=== PATIENT | male | born 1960 | race Caucasian/White ===

== ENCOUNTER 2017-10-28 11:54 | Emergency (ER) | payer MEDICARE, MEDICAID ==
[2017-10-28 12:56] LABS: APPEARANCE,URINE CLOUDY; BILIRUBIN,URINE NEGATIVE (NEGATIVE); GLUCOSE, URINE NEGATIVE (NEGATIVE); KETONES,URINE NEGATIVE (NEGATIVE); LEUKOCYTE ESTERASE,URINE NEGATIVE (NEGATIVE); NITRITE,URINE NEGATIVE (NEGATIVE); PROTEIN,URINE 100 mg/dL (NEGATIVE); URINE SPECIFIC GRAVITY 1.017; UROBILINOGEN,URINE NEGATIVE mg/dL (<2.0)
[2017-10-28 12:57] LABS: COLOR,URINE BROWN
[2017-10-28] MEDS ORDERED: ONDANSETRON HCL INJ/PF 4 MG/2 ML SDV IV ONE (14:33)
[2017-10-28] MEDS ORDERED: NORMAL SALINE 1000 ML 1,000 ML IV ONE (14:33)
--- NOTE | 2017-10-28 14:35 | ER Document Report ---
ED Medical Screen (RME) - General Chief Complaint: Urinary Problem Stated Complaint: BLOOD IN URINE/HEADACHE Time Seen by Provider: 10/28/17 14:29 Mode of Arrival: Ambulatory Information source: Patient Notes: Patient is a 49-year-old male who presents with multiple complaints today. Patient reports he has blood in his urine, fever, headache, nausea, diarrhea, productive cough and left-sided low back/flank pain. Patient reports history of kidney stones and states this does not feel like that. Exam: Mild wheezing noted to the right lower lobe. No CVA tenderness noted bilaterally. Tenderness to palpation to the paraspinous muscles on the left side. No acute distress noted. I have greeted and performed a rapid initial assessment of this patient. A comprehensive ED assessment and evaluation of the patient, analysis of test results and completion of the medical decision making process will be conducted by additional ED providers. Dictation of this chart was performed using voice recognition software; therefore, there may be some unintended grammatical errors. TRAVEL OUTSIDE OF THE [place] IN LAST 30 DAYS: No - Related Data Allergies/Adverse Reactions: amoxicillin Allergy (Verified 10/28/17 11:56) Past Medical History - Social History Chew tobacco use (# tins/day): No Frequency of alcohol use: Occasional Drug Abuse: None Neurological Medical History: Reports: Hx Seizures - as a child Renal/ Medical History: Denies: Hx Peritoneal Dialysis Past Surgical History: Reports: Hx Appendectomy, Hx Cholecystectomy, Hx Orthopedic Surgery - R hip replaced, L knee, L rotator cuff repait Physical Exam - Vital signs Vitals: Temp Pulse Resp BP Pulse Ox 98.6 F 96 18 121/67 96 10/28/17 12:16 10/28/17 12:16 10/28/17 12:16 10/28/17 12:16 10/28/17 12:16 Course - Vital Signs Vital signs: Temp Pulse Resp BP Pulse Ox 98.6 F 96 18 121/67 96 10/28/17 12:16 10/28/17 12:16 10/28/17 12:16 10/28/17 12:16 10/28/17 12:16 - Laboratory Laboratory results interpreted by me: 10/28/17 12:00 Urine Protein 100 H Urine Blood LARGE H Doctor's Discharge - Discharge Referrals: PETERSON TIAN MD [Primary Care Provider] - Follow up as needed
[2017-10-28 15:13] LABS: ABSOLUTE BASOPHILS # (AUTO) 0.1 10^3/uL (0.0-0.2); ABSOLUTE EOSINOPHILS # (AUTO) 0.2 10^3/uL (0.0-0.6); ABSOLUTE LYMPHOCYTES (AUTO) 1.7 10^3/uL (0.5-4.7); ABSOLUTE MONOCYTES (AUTO) 0.7 10^3/uL (0.1-1.4); ABSOLUTE NEUT (AUTO) 2.2 10^3/uL (1.7-8.2); BASOPHILS % (AUTO) 1.2 % (0-2); EOSINOPHILS % (AUTO) 3.7 % (0-6); HEMATOCRIT 43.1 % (37.9-51.0); HEMOGLOBIN 14.8 g/dL (13.5-17.0); LYMPHOCYTES % (AUTO) 35.2 % (13-45); MEAN CORPUSCULAR HEMOGLOBIN 29.9 pg (27.0-33.4); MEAN CORPUSCULAR HGB CONC 34.2 g/dL (32.0-36.0); MEAN CORPUSCULAR VOLUME 87 fl (80-97); MONOCYTES % (AUTO) 15.4 % (3-13); PLATELET COUNT 259 10^3/uL (150-450); RED BLOOD COUNT 4.93 10^6/uL (4.35-5.55); RED CELL DISTRIBUTION WIDTH 14.8 % (11.5-14.0); SEGMENTED NEUTROPHILS % (AUTO) 44.5 % (42-78); TOTAL CELLS COUNTED % (AUTO) 100 %; WHITE BLOOD COUNT 4.9 10^3/uL (4.0-10.5)
[2017-10-28 15:29] LABS: ALANINE AMINOTRANSFERASE 51 U/L (21-72); ALBUMIN 4.1 g/dL (3.5-5.0); ALKALINE PHOSPHATASE 127 U/L (38-126); ANION GAP 10 (5-19); ASPARTATE AMINO TRANSFERASE 59 U/L (17-59); BILIRUBIN,DIRECT 0.3 mg/dL (0.0-0.4); BILIRUBIN,TOTAL 0.4 mg/dL (0.2-1.3); BLOOD UREA NITROGEN 8 mg/dL (7-20); CALCIUM 9.9 mg/dL (8.4-10.2); CARBON DIOXIDE 27 mmol/L (22-30); CHLORIDE 104 mmol/L (98-107); GLUCOSE 73 mg/dL (75-110); LIPASE 471.7 U/L (23-300); POTASSIUM 4.6 mmol/L (3.6-5.0); SODIUM 140.8 mmol/L (137-145); TOTAL PROTEIN 7.7 g/dL (6.3-8.2)
--- NOTE | 2017-10-28 15:37 | RADIOLOGY REPORT (SQ) ---
EXAM DESCRIPTION: CHEST 2 VIEWS COMPLETED DATE/TIME: 10/28/2017 3:20 pm REASON FOR STUDY: fever, cough COMPARISON: None. EXAM PARAMETERS: NUMBER OF VIEWS: two views TECHNIQUE: Digital Frontal and Lateral radiographic views of the chest acquired. RADIATION DOSE: NA LIMITATIONS: none FINDINGS: LUNGS AND PLEURA: No opacities, masses or pneumothorax. No pleural effusion. MEDIASTINUM AND HILAR STRUCTURES: No masses or contour abnormalities. HEART AND VASCULAR STRUCTURES: Heart normal size. No evidence for failure. BONES: No acute findings. HARDWARE: None in the chest. OTHER: No other significant finding. IMPRESSION: NO ACUTE RADIOGRAPHIC FINDING IN THE CHEST. TECHNICAL DOCUMENTATION: JOB ID: [id number] [employer]- All Rights Reserved Reading location - IP/workstation name: [email or web address]
--- NOTE | 2017-10-28 18:33 | ER Document Report ---
ED General - General Chief Complaint: Urinary Problem Stated Complaint: BLOOD IN URINE/HEADACHE Time Seen by Provider: 10/28/17 14:29 Mode of Arrival: Ambulatory Information source: Patient Notes: This is a 57-year-old man with a history of renal stone in the past who presents to the emergency room with gross hematuria. Patient does report having some left CVA tenderness. He says it is different than his past stones. He also reports having symptoms of cough, congestion after being exposed to moldy house in the setting of her cane Janel. He denies any fever or shortness of breath. TRAVEL OUTSIDE OF THE [place] IN LAST 30 DAYS: No - HPI Onset: Last week Onset/Duration: Gradual Quality of pain: Dull Severity: Mild Pain Level: 1 Associated symptoms: Nausea. denies: Chills, Fever Exacerbated by: Denies Relieved by: Denies Similar symptoms previously: No Recently seen / treated by doctor: No - Related Data Allergies/Adverse Reactions: amoxicillin Allergy (Verified 10/28/17 11:56) Past Medical History - General Information source: Patient - Social History Smoking Status: Current Every Day Smoker Cigarette use (# per day): Yes - 1 pack per day Chew tobacco use (# tins/day): No Frequency of alcohol use: Occasional Drug Abuse: None Lives with: Family Family History: None Patient has suicidal ideation: No Patient has homicidal ideation: No - Past Medical History Cardiac Medical History: Reports: Hx Hypertension Pulmonary Medical History: Reports: Hx COPD EENT Medical History: Reports: None Neurological Medical History: Reports: None Endocrine Medical History: Reports: None Renal/ Medical History: Reports: Hx Kidney Stones. Denies: Hx Peritoneal Dialysis Malignancy Medical History: Reports None GI Medical History: Reports: None Musculoskeletal Medical History: Reports Hx Arthritis Skin Medical History: Reports None Psychiatric Medical History: Reports: None Traumatic Medical History: Reports: None Infectious Medical History: Reports: None Past Surgical History: Reports: Hx Appendectomy, Hx Cholecystectomy, Hx Orthopedic Surgery - R hip replaced, L knee, L rotator cuff repait Review of Systems - Review of Systems Constitutional: denies: Chills, Fever EENT: No symptoms reported Cardiovascular: No symptoms reported Respiratory: No symptoms reported Gastrointestinal: No symptoms reported Genitourinary: See HPI Male Genitourinary: No symptoms reported Musculoskeletal: See HPI Skin: No symptoms reported Hematologic/Lymphatic: No symptoms reported Neurological/Psychological: No symptoms reported Physical Exam - Vital signs Vitals: Temp Pulse Resp BP Pulse Ox 98.6 F 96 18 121/67 96 10/28/17 12:16 10/28/17 12:16 10/28/17 12:16 10/28/17 12:16 10/28/17 12:16 Notes: Physical exam: GENERAL: The 7-year-old man, alert and oriented 3, no acute distress HEAD: Atraumatic, normocephalic. EYES: Pupils equal round and reactive to light, extraocular movements intact, sclera anicteric, conjunctiva are normal. ENT: TMs normal, nares patent, oropharynx clear without exudates. Moist mucous membranes. NECK: Normal range of motion, supple without obvious mass or JVD. LUNGS: Breath sounds clear to auscultation bilaterally and equal. No wheezes rales or rhonchi. HEART: Regular rate and rhythm without murmurs, rubs or gallops. ABDOMEN: Soft, normoactive bowel sounds. No tenderness to palpation. No guarding, no rebound. No masses appreciated. Mild left CVA tenderness. EXTREMITIES: Normal range of motion, no pitting or edema. No clubbing or cyanosis. NEUROLOGICAL: Cranial nerves II through XII grossly intact. Normal speech, moving all extremities. PSYCH: Normal mood, normal affect. SKIN: Warm, Dry, normal turgor, no rashes or lesions noted. Course - Re-evaluation Re-evalutation: 10/28/17 23:[address] report with the patient as well as the labs. There is no evidence of obstruction. I will refer him to a urologist. - Vital Signs Vital signs: Temp Pulse Resp BP Pulse Ox 98.4 F 88 18 127/76 H 96 10/28/17 20:51 10/28/17 20:51 10/28/17 20:51 10/28/17 20:51 10/28/17 20:51 - Laboratory Result Diagrams: 10/28/17 14:50 10/28/17 14:50 Laboratory results interpreted by me: 10/28/17 10/28/17 10/28/17 12:00 14:50 14:50 RDW 14.8 H Monocytes % 15.4 H Glucose 73 L Alkaline Phosphatase 127 H Lipase 471.7 H Urine Protein 100 H Urine Blood LARGE H - Diagnostic Test Radiology reviewed: Image reviewed, Reports reviewed - CT shows 5 mm stone at the right UVJ with mild hydronephrosis. Patient does have 12 mm stone in the renal pelvis not yet descended into the ureteral tract. Discharge - Discharge Clinical Impression: Right kidney stone Condition: Stable Disposition: HOME, SELF-CARE Instructions: Kidney Stone ([facility]) Additional Instructions: As we discussed, you have a 5 mm kidney stone on the right side. This is the cause of the bleeding. When the stone is passed, the bleeding will reside. There is no evidence of infection. You do have another stone which is higher up in the kidney but that would not cause pain until it drops down into the ureter (so it is no concern right now). I do want you to drink plenty of fluids, take pain medicine as needed, take the Flomax as prescribed, nausea medicine as needed. Follow-up with a urologist. Take ibuprofen every 6 hours for pain. It is recommended that you follow-up with a urologist: [facility] [place] [facility] [address] [place], [place] [phone] [place] [facility] [address] [place], [place] [phone] Into the emergency room for fever, vomiting, not tolerating fluids or any concerns or getting worse. Prescriptions: Oxycodone HCl 5 mg PO Q6HP PRN #25 tablet PRN Reason: Ondansetron HCl [Zofran 4 mg Tablet] 1 - 2 tab PO Q4H PRN #10 tablet PRN Reason: Tamsulosin HCl [Flomax 0.4 mg Cap.sr] 0.4 mg PO DAILY #7 cap.sr.24h Referrals: PETERSON TIAN MD [ACTIVE STAFF] - Follow up in 3-5 days
--- NOTE | 2017-10-28 19:30 | RADIOLOGY REPORT (SQ) ---
EXAM DESCRIPTION: CT LTD RENAL STONE PROTOCOL ON COMPLETED DATE/TIME: 10/28/2017 7:09 pm REASON FOR STUDY: left flank pain COMPARISON: None. TECHNIQUE: CT scan of the abdomen and pelvis performed without intravenous or oral contrast. Images reviewed with lung, soft tissue, and bone windows. Reconstructed coronal and sagittal MPR images revi ewed. All images stored on PACS. All CT scanners at this facility use dose modulation, iterative reconstruction, and/or weight based d osing when appropriate to reduce radiation dose to as low as reasonably achievable (ALARA). [facility]: Dose Right [facility]: CareDose [facility]: Dose Right [facility]: Teradose 4D [facility]: [employer] RADIATION DOSE: CT Rad equipment meets quality standard of care and radiation dose reduction techniq ues were employed. CTDIvol: 11.4 mGy. DLP: 606 mGy-cm.mGy. LIMITATIONS: None. FINDINGS: A 5 mm distal right ureteral calculus is present on axial image 76, and coronal image 53. This causes mild right hydronephrosis and hydroureter. There is a 12 mm stone in the right renal pelvis measuring 1410 Hounsfield units. No other right-vika ed urinary stones. 3.5 cm cyst right lower pole kidney. No right renal masses. LOWER CHEST: No significant findings. No nodules or infiltrates. NON-CONTRASTED LIVER, SPLEEN, ADRENALS: Evaluation limited by lack of IV contrast. No identified sign ificant masses. PANCREAS: No masses. No peripancreatic inflammatory changes. GALLBLADDER: Surgically absent RIGHT KIDNEY AND URETER: As above LEFT KIDNEY AND URETER: No suspicious masses. Assessment limited by lack of IV contrast. No left up per pole 4 mm intrarenal nonobstructive stone. Left lower pole 5 mm intrarenal nonobstructive stone. No hydronephrosis or hydroureter. AORTA AND RETROPERITONEUM: No aneurysm. No retroperitoneal masses or adenopathy. BOWEL AND PERITONEAL CAVITY: No obvious masses or inflammatory changes. No free fluid. Few sigmoid d iverticuli without CT signs of acute diverticulitis APPENDIX: Surgically absent PELVIS, BLADDER, AND ABDOMINAL WALL:No abnormal masses. No free fluid. Bladder normal. BONES: Old right hip replacement OTHER: No other significant finding. IMPRESSION: 5 mm distal right ureteral calculus with mild right hydronephrosis and hydroureter. 12 mm calculus in the right renal pelvis COMMENT: Quality ID # [id number]: Final reports with documentation of one or more dose reduction techniques (e.g., Automated exposure control, adjustment of the mA and/or kV according to patient size, use of iterative reconstruction technique) TECHNICAL DOCUMENTATION: JOB ID: [id number] [employer]- All Rights Reserved Reading location - IP/workstation name: [email or web address]
[2017-10-28] MEDS ORDERED: ONDANSETRON ODT 4 MG TAB (6 TAB/ER DISP) PO PRN (19:57)
[2017-10-28] MEDS ORDERED: HYDROCODONE/ACETAMINOPHEN 5-325 MG (6 TAB/ER DISP) PO PRN (19:57)
[2017-10-28 20:54] VITALS: BP 127/76
== END 2017-10-28 21:00 | disposition home or self-care (01) ==
LOC: ER 11:54
DX: N13.2 Hydronephrosis with renal and ureteral calculous obstruction (principal); R31.0 Gross hematuria; R11.0 Nausea; F17.210 Nicotine dependence, cigarettes, uncomplicated; I10 Essential (primary) hypertension; J44.9 Chronic obstructive pulmonary disease, unspecified; Z88.0 Allergy status to penicillin
CPT/HCPCS: 99284; 96361; 96374; 36415; 83690; 85025; 80053; 81001; 71046; 76380; J2405; A9270 ×2